=== PATIENT | female | born 1970 | race Caucasian/White ===

== ENCOUNTER 2016-07-14 10:52 | Day surgery (SDC) | payer OTHER ==
[~2016-07-14] VITALS: Ht 162.6 cm; Wt 77.1 kg
[~2016-07-14 10:52] MED LIST: AMBIEN10 MG PO; ASPIRIN E.C.81 M1 PO; BUSPIRONE HCL5 MG PO; CARAFATE100 MG/ML PO; CLONAZEPAM1 M1 PO; ELIQUIS5 MG PO; FENTANYL1 EAC1 TD; FLUTICASONE PRO16 GM BOTH NARES; Flexeril PO; HYDROMORPHONE HC2 MG PO; IRON325 M1 PO; KAPIDEX60 MG PO; LANOXIN,DIGI0.125 MG PO; LANOXIN125 MCG PO; LANSOPRAZOLE30 MG PO; LINZESS145 MCG PO; LORTAB 10-5001 EACH PO; LYRICA75 MG PO; MELATONIN10 M5 PO; MELATONIN5 M1 PO; OXYCODONE HCL10 MG PO; OXYCONTIN30 MG PO; PANTOPRAZOLE SO40 MG PO; PREVACID30 MG PO; PRILOSEC OTC20 MG PO; PROPRANOLOL HC120 MG PO; ST. JOSEPH ASPI81 MG PO; TIZANIDINE HCL4 MG PO; TOPICORT LP TP; ZANAFLEX4 M1 PO; ZOCOR20 MG PO; ZOCOR40 MG PO; ZOFRAN4 MG PO; ZOLPIDEM TARTRA10 MG PO
[2016-07-14] MEDS ORDERED: CIPRO250 MG PO (11:26)
[2016-07-14 11:36] VITALS: BP 120/77
[2016-07-14 12:14] LABS: PROTHROMBIN TIME 9.8 (9.2-11.2); PTT 27.1 (25-32)
[2016-07-14 12:39] LABS: METH RESISTANT S AUREUS PCR NEGATIVE (NEGATIVE)
[2016-07-14 12:41] LABS: PROBE CHECK PASS; SPECIMEN PROCESSING CONTROL PASS
[2016-07-14 14:30] VITALS: BP 117/62
[2016-07-14 15:30] VITALS: BP 108/59
== END 2016-07-14 15:42 | disposition home or self-care (01) ==
LOC: SDC → EDSTATUS 15:57 → SDC 15:58
PROVIDERS: Obstetrics & Gynecology Gynecology
PROC: 0UDB8ZX Extraction of Endometrium, Via Natural or Artificial Opening Endoscopic, Diagnostic (ICD-10-PCS; principal; 2016-07-14)
DX: N93.8 Other specified abnormal uterine and vaginal bleeding (principal); N84.0 Polyp of corpus uteri; I10 Essential (primary) hypertension; E03.9 Hypothyroidism, unspecified; K21.9 Gastro-esophageal reflux disease without esophagitis; D64.9 Anemia, unspecified; F17.210 Nicotine dependence, cigarettes, uncomplicated; Z88.0 Allergy status to penicillin; Z79.01 Long term (current) use of anticoagulants; Z79.82 Long term (current) use of aspirin
CPT/HCPCS: 80162; 85610; 85730; 87641; 88305; J1100; J1170; J2250; J2405; J3010